=== PATIENT | female | born 1955 | race African-American/Black ===

== ENCOUNTER 2018-09-28 18:32 | Emergency (ER) | payer OTHER ==
[~2018-09-28] VITALS: Ht 152.4 cm; Wt 68.0 kg
--- OUTSIDE RECORDS SUMMARY | 2018-09-28 18:35 | XMS REPORT | Summary of Care ---
Author Author Deanna Sanford LVN Organization Unknown Address [facility] Phone Unavailable Care Team Providers Care Can Reconditioner Name Role Phone Deanna Sanford LVN Unavailable Unavailable JERILYN GUNTER M.D. Unavailable Unavailable JASON MCCALL MO, FRANCISCO ALEMAN Unavailable Unavailable Unavailable Unavailable Functional Status Name Dates Details Functional status health issues are not documented Status: Name Dates Details Cognitive status health issues are not documented Status: Problems Name Dates Details Pain, hand joint (719.44, M25.549) Status: Active Arthralgia of both hands (719.44, M25.541) Status: Active Viral URI with cough (465.9, J06.9) Status: Active Seborrheic keratosis (702.19, L82.1) Status: Active HTN (hypertension) (401.9, I10) Status: Active Medications Name Dates Details Lisinopril 20 MG Oral Tablet TAKE 1 TABLET DAILY FOR BLOOD PRESSURE. Quantity: 90 * Start : 19-Jul-2018 Active Benzonatate 100 MG Oral Capsule TAKE 1 CAPSULE 3 TIMES DAILY NEEDED. * Quantity: 12 Refills: 3 LYRIC Steen, JERILYN * Start : 19-Jul-2018 Active Allergies and Adverse Reactions Name Dates Details codeine (Allergy) Status: Active Procedures Procedure Dates Details History of No history of surgery Completed Immunization Name Dates Details Immunizations not documented Family History Name Dates Details Family history of hypertension (V17.49, Z82.49) Status: Active Family history of High cholesterol (272.0, E78.00) Status: Active Social History Name Dates Details - Status: Name Dates Details Never smoker Vital Signs Date Test Result Details [id number] Physical Findings 1 Status: Comments: PHQ-9 Adult Depression Screening [id number] Height 62 in Status: Body Mass Index Calculated 28.42 kg/m2 Status: Body Surface Area Calculated 1.72 m2 Status: [id number] BP Systolic 133 mm[Hg] Status: Comments: Location: [facility] [place]; Position: Sitting BP Diastolic 85 mm[Hg] Status: Comments: Location: [facility] [place]; Position: Sitting Weight 155.4 lb Status: Temperature 97.7 f Status: Comments: Method: Temporal Heart Rate 65 /min Status: Results Date Description Value Details :38 [] LIPID PANEL WITH REFLEX TO DIRECT LDL CHOLESTEROL, TOTAL 218 mg/dl (Above high threshold) Range: <200 HDL CHOLESTEROL 65 mg/dl (Normal) Range: >50 TRIGLYCERIDES 97 mg/dl (Normal) Range: <150 LDL-CHOLESTEROL 133 {MG/DL__CAL} (Above high threshold) Comments: Reference range: <100 Desirable range <100 mg/dL for primary prevention; <70 mg/dL for patients with CHD or diabetic patients with > or=2 CHD risk factors. LDL-C is now calculated using the Kem calculation, which is a validated novel method providing better accuracy than the Friedewald equation in the estimation of LDL-C. Jw CARBONE et al. SHASTA. 2013;310(19): 6394-0811 (http:/ /education.[employer]/faq/[email or web address]) CHOL/HDLC RATIO 3.4 {CALC} (Normal) Range: <5.0 NON HDL CHOLESTEROL 153 {MG/DL__CAL} (Above high threshold) Range: <130 Comments: For patients with diabetes plus 1 major ASCVD risk factor, treating to a non-HDL-C goal of <100 mg/dL (LDL-C of <70 mg/dL) is considered a therapeutic option. :38 [[facility]] CMP W/EGFR GLUCOSE 89 mg/dl (Normal) Range: 65-139 Comments: Non-fasting reference interval UREA NITROGEN (BUN) 10 mg/dl (Normal) Range: 7-25 CREATININE 0.78 mg/dl (Normal) Range: 0.50-0.99 Comments: For patients >49 years of age, the reference limitfor Creatinine is approximately 13% higher for peopleidentified as -[place]rist[place]. eGFR NON- 82 {ML/MIN/1.7} (Normal) Range: > OR=60 eGFR 95 {ML/MIN/1.7} (Normal) Range: > OR=60 BUN/CREATININE RATIO NOT APPLICABLE {CALC} Range: 6-22 SODIUM 139 mmol/L (Normal) Range: 135-146 POTASSIUM 4.7 mmol/L (Normal) Range: 3.5-5.3 CHLORIDE 104 mmol/L (Normal) Range: 98-110 CARBON DIOXIDE 29 mmol/L (Normal) Range: 20-32 CALCIUM 9.8 mg/dl (Normal) Range: 8.6-10.4 PROTEIN, TOTAL 7.8 g/dl (Normal) Range: 6.1-8.1 ALBUMIN 4.1 g/dl (Normal) Range: 3.6-5.1 GLOBULIN 3.7 {G/DL__CALC} (Normal) Range: 1.9-3.7 ALBUMIN/GLOBULIN RATIO 1.1 {CALC} (Normal) Range: 1.0-2.5 BILIRUBIN, TOTAL 0.5 mg/dl (Normal) Range: 0.2-1.2 ALKALINE PHSPHATASE 78 u/l (Normal) Range: 33-130 AST 15 u/l (Normal) Range: 10-35 ALT 18 u/l (Normal) Range: 6-29 [id number] [[facility]] HEMOGLOBIN A1c Comments: REPORT COMMENT:FASTING:NO HEMOGLOBIN A1c 5.7 {%_of_total} (Above high threshold) Range: <5.7 Comments: For someone without known diabetes, a hemoglobin A1c value between 5.7% and 6.4% is consistent withprediabetes and should be confirmed with a follow-up test. For someone with known diabetes, a value <7%indicates that their diabetes is well controlled. [id number] should be individualized based on duration ofdiabetes, age, comorbid conditions, and otherconsiderations. This assay result is consistent with an increased riskof diabetes. Currently, no consensus exists regarding use ofhemoglobin A1c for diagnosis of diabetes for children. [id number] Tobacco Use Screening Completed DONE Plan of Care Name Dates Details Planned Observations Planned Goals not documented Instructions Name Dates Details Instructions not documented Encounters Appointment; JERILYN GUNTER M.D. Encounter Diagnosis: Problem not documented On: 19-Jul-2018 10:00
[2018-09-28] MEDS ORDERED: DIPHENHYDRAMINE HCL INJ 50 MG/ML VIAL IV ONE (18:45)
[2018-09-28] MEDS ORDERED: METHYLPREDNISOLONE SOD SUCC 125 MG/2ML VIAL IV ONE (18:45)
--- NOTE | 2018-09-28 18:57 | NUR ---
REPORT TO LUISA LOWE
[2018-09-28] MEDS ORDERED: FAMOTIDINE 20 MG/2 ML VIAL IV NR (19:00)
[2018-09-28] MEDS ORDERED: HYDROXYZINE HCL25 MG PO (19:01)
[2018-09-28] MEDS ORDERED: PREDNISONE20 MG PO (19:01)
[2018-09-28] MEDS ORDERED: METHYLPREDNISOLONE SOD SUCC 125 MG/2ML VIAL ONE (19:09)
== END 2018-09-28 21:35 | disposition home or self-care (01) ==
LOC: FSED 18:32
DX: T78.3XXA Angioneurotic edema, initial encounter (principal); T44.5X5A Adverse effect of predominantly beta-adrenoreceptor agonists, initial encounter; I10 Essential (primary) hypertension
CPT/HCPCS: 99283; J1200; J2930

== ENCOUNTER 2022-01-31 11:52 | Emergency (ER) | payer OTHER ==
[~2022-01-31] VITALS: Ht 157.5 cm; Wt 74.4 kg
[~2022-01-31 11:52] MED LIST: HYDROXYZINE HCL25 MG PO; PREDNISONE20 MG PO
[2022-01-31] MEDS ORDERED: AMBIEN5 MG PO (12:21)
[2022-01-31] MEDS ORDERED: CLOBETASOL1 EA/15 GM PO (12:21)
[2022-01-31] MEDS ORDERED: HYDROCHLOROTHIA25 MG (12:21)
== END 2022-01-31 13:04 | disposition home or self-care (01) ==
LOC: FSED 12:21
DX: L43.9 Lichen planus, unspecified (principal); I10 Essential (primary) hypertension
CPT/HCPCS: 81003; 99283